=== PATIENT | male | born 1980 | race Caucasian/White ===

== ENCOUNTER 2017-11-25 11:44 | Emergency (ER) | payer OTHER ==
[~2017-11-25] VITALS: Ht 172.7 cm; Wt 79.4 kg
== END 2017-11-25 14:00 | disposition home or self-care (01) ==
LOC: ER 11:44
DX: B34.9 Viral infection, unspecified (principal)

== ENCOUNTER 2018-09-30 08:50 | Emergency (ER) | payer OTHER ==
[~2018-09-30] VITALS: Ht 172.7 cm; Wt 79.4 kg
[2018-09-30] MEDS ORDERED: PROMETH-CODEIN 65 ML PO (12:42)
[2018-09-30] MEDS ORDERED: OSEL75CA PO (12:42)
[2018-09-30] MEDS ORDERED: MUCINEX DM ER1 EAC1 PO (12:42)
[2018-09-30] MEDS ORDERED: KETO10TA2 PO (12:42)
== END 2018-09-30 13:01 ==
LOC: ER 08:50
DX: J09.X2 Influenza due to identified novel influenza A virus with other respiratory manifestations (principal); E86.0 Dehydration

== ENCOUNTER 2020-04-14 12:19 | Outpatient (CLI) | payer OTHER ==
[~2020-04-14 12:19] MED LIST: KETO10TA2 PO; MUCINEX DM ER1 EAC1 PO; OSEL75CA PO; PROMETH-CODEIN 65 ML PO
== END 2020-04-14 12:28 | disposition home or self-care (01) ==
LOC: LAB 12:19
PROVIDERS: ATTEND Surgery
DX: K40.90 Unilateral inguinal hernia, without obstruction or gangrene, not specified as recurrent (principal); Z01.818 Encounter for other preprocedural examination; Z57.9 Occupational exposure to unspecified risk factor